=== PATIENT | male | born 1970 | race Caucasian/White ===

== ENCOUNTER 2016-10-03 11:16 | Observation (INO) ==
[2016-10-03] MEDS ORDERED: MIDAZOLAM 5mg/5ml INJECTION IVP ONE (12:06)
[2016-10-03] MEDS ORDERED: FentaNYL 100 MCG/2 ML INJECTION IVP ONE (12:06)
[2016-10-03 12:18] VITALS: BMI 36.5
--- OUTSIDE RECORDS SUMMARY | 2016-10-03 12:26 | External Medical Summary | CCD ---
:1970 Author Name GHAZAL MELCHOR Address [address], [place] [id number] Care Team Providers Name Role Phone KELLIE GEE Attending Physician Unavailable Vital Signs Unknown or Not Available. Allergies Allergy Code Allergy Type Reaction Status No Known Allergies 0 No known allergies Active Procedures Unknown or Not Available. History of Immunizations Unknown or Not Available. Problems Unknown or Not Available. Results INFLUENZA A & B, MOLECULAR - Collect Date/Time: 06/30/2015 13:30 Test Name Code Test Result Test Units Test Ref Range INFLUENZA A NEGATIVE N/A NORMAL: NEGATIVE INFLUENZA B NEGATIVE N/A NORMAL: NEGATIVE Active Medications Unknown or Not Available. Medications Administered During Visit Unknown or Not Available. Encounters Unknown or Not Available. Social History Smoking Status Code Start Date End Date Never smoker [id number] Patient Decision Aids Unknown or Not Available. Discharge Instructions You were admitted to [facility] on 06/30/2015 13:39 You had the following tests done: INFLUENZA A & B, MOLECULAR You were discharged from [facility] on 06/30/2015 13:39 Should you have any questions prior to discharge, please contact a member of your healthcare team. If you have left the hospital and have any questions, please contact your primary care physician. Chief Complaint and Reason For Visit Chief Complaint Date of Onset LAB Function Status Unknown or Not Available. Plan of Care Unknown or Not Available. Referral/Transition of Care Unknown or Not Available.
--- OUTSIDE RECORDS SUMMARY | 2016-10-03 12:26 | External Medical Summary | CCD ---
:1970 Author Name GHAZAL MELCHOR Address [address], [place] [id number] Care Team Providers Name Role Phone WILLIAM TINAJERO Attending Physician Unavailable Vital Signs Unknown or Not Available. Allergies Allergy Code Allergy Type Reaction Status No Known Allergies 0 No known allergies Active Procedures Unknown or Not Available. History of Immunizations Unknown or Not Available. Problems Unknown or Not Available. Results C-REACTIVE PROTEIN - Collect Date/Time: 07/18/2015 16:57 Test Name Code Test Result Test Units Test Ref Range CRP 17 mg/L L=0 H=5 COMP METABOLIC - Collect Date/Time: 07/18/2015 16:57 Test Name Code Test Result Test Units Test Ref Range GLUCOSE 96 mg/dL L=70 H=110 BUN 12 mg/dL L=7 H=18 CREATININE 1.02 mg/dL L=0.60 H=1.30 AGE 45 YEARS GFR 79.3 SODIUM 140 mmol/L L=136 H=145 POTASSIUM 4.0 mmol/L L=3.5 H=5.1 CHLORIDE 102 mmol/L L=98 H=107 CO2 29 mmol/L L=21 H=32 CALCIUM 9.5 mg/dL L=8.5 H=10.1 AST 21 U/L L=15 H=37 ALT 60 U/L L=12 H=78 ALKALINE PHOS 62 U/L L=46 H=116 TOTAL PROTEIN 7.9 g/dL L=6.4 H=8.2 ALBUMIN 3.9 g/dL L=3.4 H=5.0 TOTAL BILI 0.60 mg/dL L=0.00 H=1.00 TSH - Collect Date/Time: 07/18/2015 16:57 Test Name Code Test Result Test Units Test Ref Range TSH 2.04 uIU/mL L=0.36 H=3.74 CBC W/ DIFF - Collect Date/Time: 07/18/2015 16:57 Test Name Code Test Result Test Units Test Ref Range WBC 7.2 x10^3 L=4.8 H=10.8 RBC 4.99 x10^6 L=4.70 H=6.10 HEMOGLOBIN 14.2 g/dL L=14.0 H=18.0 HEMATOCRIT 42.4 % L=42.0 H=52.0 MCV 85 fL L=80 H=100 MCH 28.6 pg L=27.0 H=33.0 MCHC 33.6 g/dL L=33.0 H=37.0 RDW 12.6 % L=11.5 H=14.5 PLATELETS 269 x10^3 L=150 H=450 MPV 7.8 fL L=7.8 H=11.0 NEUTROPHILS 54.5 % L=40.0 H=80.0 LYMPHOCYTES 27.7 % L=20.0 H=45.0 MONOCYTES 14.5 % L=0.0 H=10.0 EOSINOPHILS 2.7 % L=0.0 H=5.0 BASOPHILS 0.6 % L=0.0 H=2.0 REFLEX MAN DIFF NO N/A SED RATE AUTO - Collect Date/Time: 07/18/2015 16:57 Test Name Code Test Result Test Units Test Ref Range SED RATE 13 mm/HR L=0 H=10 LYME DISEASE AB, TOTAL & IgM - Collect Date/Time: 07/18/2015 16:57 Test Name Code Test Result Test Units Test Ref [place] [address]-5 <0.91 ISR 0.00-0.90 Lyme Disease Ab, 5064-1 <0.80 index 0.00-0.79 Quant,IgM Active Medications Unknown or Not Available. Medications Administered During Visit Unknown or Not Available. Encounters Encounter Diagnosis Diagnosis Code Start Date Fever, unspecified R509 07/18/2015 Social History Smoking Status Code Start Date End Date Never smoker [id number] Patient Decision Aids Unknown or Not Available. Discharge Instructions You were admitted to [facility] on 07/18/2015 16:33 with a principal diagnosis of Fever, unspecified You had the following tests done: C- REACTIVE PROTEIN CBC W/ DIFF COMP METABOLIC LYME DISEASE AB, TOTAL & IgM SED RATE AUTO TSH You were discharged from [facility] on 07/18/2015 16:33 Should you have any questions prior to [...]
--- OUTSIDE RECORDS SUMMARY | 2016-10-03 12:26 | External Medical Summary | Continuity of Care Document ---
:1970 Demographics Phone Unavailable Preferred Language Unknown Marital Status Unknown Worship Affiliation Unknown Race Unknown Ethnic Group Unknown Author Organization [facility] Allergies Medications Problems Procedures Results Encounters ACCT No. Visit Discharge Status Pt. Type Provider Facility Loc./Unit Complaint Date/Time [id number] 08/03/2015 [facility] Unknown [id number] 08:35:00 [id number] 07/14/2015 [facility] Unknown 0516 10:26:00
[2016-10-03] MEDS ORDERED: RIVAROXABAN 20 MG TABLET PO SCH (12:36)
--- NOTE | 2016-10-03 13:20 | Cardiology History & Physical ---
History of Present Illness Chief complaint: palpitations HPI: Daren is a 46 year old male who has no history of health problems and takes no medications who awoke this morning with some pressure in his chest. He showered and went to work where he had some intermittent dizziness. He presented to the ED in [place] and was found to be in AFib with RVR. He was taken by EMS to [facility] for admission to Dr. Diaz. He is seen in his room in CCU. He denies recent illness, fever, chills, sore throat, cough, Heart racing or skipped beats, chest pain, dyspnea, N/V/D, or dysuria. Review of Systems - Constitutional Constitutional: Absent: chills, fever(s), weakness - EENMT Eyes: Absent: change in vision Balance: Absent: vertigo Mouth/Throat: Absent: sore throat - Cardiovascular Cardiovascular: Present: as per HPI. Absent: chest pain, palpitations, syncope Rhythm: Absent: abnormal rhythm Vascular: Absent: pedal edema - Respiratory Respiratory: Absent: cough, dyspnea - Gastrointestinal Gastrointestinal: Absent: diarrhea, nausea, vomiting - Genitourinary Genitourinary: Absent: dysuria - Integumentary/Breasts Integumentary: Absent: rash - Neurological Neurological: Present: dizziness - Endocrine Endocrine: Absent: palpitations [facility] Patient Stated Medical History Cardiac Arrhythmia Yes: 10/03/16 a-fib Surgical History: none - Social History Smoking status: Never smoker Substance use type: does not use Alcohol intake frequency: 0-2 drinks per day Household members: spouse Current occupational status: employed Current residence: Apartment/Private Home Medications Allergies Allergy/AdvReac Type Severity Reaction Status Date / Time No Known Allergies Allergy Verified 10/03/16 12:15 Exam Vital signs: Pulse Rate 95 10/03/16 12:39 Respiratory Rate 26 H 10/03/16 12:23 Blood Pressure 127/85 10/03/16 12:23 Pulse Oximetry 97 10/03/16 12:23 Oxygen Delivery Method Room Air - Constitutional no acute distress, obese, cooperative - Routine HEENT Exam Head: Present: normocephalic - Routine Neck Exam Absent: JVD, carotid bruit - Routine Chest/Breast/Axilla Exam Chest wall: Absent: tenderness - Routine Respiratory Exam Present: CTA bilaterally. Absent: rales, wheezes - Routine Cardiovascular Exam Present: no murmur, irregularly irregular. Absent: JVD - Routine Abdominal Exam Present: soft, normoactive bowel sounds - Routine Extremities Exam Present: no edema - Routine Skin Exam Present: intact, dry, warm - Routine Neurological Exam Present: alert, oriented X3 - Routine Psychiatric Exam Present: normal affect, normal thought process Results 10/04/16 05:03 10/04/16 05:03 Intake and Output 10/02/16 10/03/16 10/03/16 22:59 06:59 14:59 Other: Weight 284 lb 6.341 oz Patient Weight 10/04/16 06:59 Weight 284 lb 6.341 oz Laboratory Results - last 48 hr 10/03/16 13:01 Magnesium 2.3 TSH 1.57 - Imaging and Cardiology EKG results: image reviewed Imaging & Cardiology Narrative: Chest xray doen in [place] without acute cardiopulmonary disease 10/03/16 13:19 EKG interpretations - EKG EKG shows: atrial fibrillation Hospital Course This is a general summary of the patient's hospital course. For more details refer to the complete medical record. Assessment and Plan (1) Atrial fibrillation with rapid ventricular response Status: Acute Rate control with IV Cardizem bolus. NPO for DCCV today. Successful DCCV, Started on Flecainide for antiarrhythmic therapy. Continue Xarelto for 1 month - Attestation Attestation Narrative: 10/04/16 14:06 Recommendation After examining the patient I agree with the above assessment. I am involved in the formulation of the patient's plan of care. Sepsis Assessment - Evaluation Sepsis screening result: No Definite Risk
[2016-10-03] MEDS: RIVAROXABAN 20 MG TABLET PO SCH ×2 (15:37→16:31)
[2016-10-03] MEDS: FLECAINIDE 50 MG TABLET PO SCH ×2 (15:37→21:04)
--- NOTE | 2016-10-03 16:24 | DC Cardioversion ---
DATE OF PROCEDURE October 03, 2016 INDICATIONS The patient is a 46-year-old gentleman who developed symptomatic atrial fibrillation this morning and was referred for cardioversion. INFORMED CONSENT Informed consent was obtained after explaining the procedure and the potential risks to the patient who agreed to proceed with the procedure. PROCEDURE 1. DC cardioversion. Conscious sedation was performed using Versed and fentanyl. Anterior-posterior Zoll pads were applied. 360 joules of energy were delivered in synchronized manner and patient converted from atrial fibrillation into sinus rhythm. He tolerated the procedure well with no complications. IMPRESSION 1. Successful DC cardioversion of atrial fibrillation to sinus rhythm. PLAN Will start him on antiarrhythmics to maintain sinus and keep him on anticoagulation for a month since his CHADS-VASc is 0. MTDD
[2016-10-04] MEDS: FLECAINIDE 50 MG TABLET PO SCH (08:35)
[2016-10-04 11:52] VITALS: TEMP 97.8
[2016-10-04 12:51] VITALS: BP 123/83; PULSE 69; RESP 26; O2SAT 96
--- NOTE | 2016-10-04 12:51 | Discharge Summary ---
<Dianne Cortez - Last Filed: 10/04/16 12:48> Discharge Information Date of admission: 10/03/16 12:05 Anticipated date of discharge: 10/04/16 Attending Physician: Jett Diaz MD - Discharge Diagnosis Discharge Diagnosis: Atrial fibrillation - Procedures Procedures: DATE OF PROCEDURE October 03, 2016 INDICATIONS The patient is a 46-year-old gentleman who developed symptomatic atrial fibrillation this morning and was referred for cardioversion. INFORMED CONSENT Informed consent was obtained after explaining the procedure and the potential risks to the patient who agreed to proceed with the procedure. PROCEDURE 1. DC cardioversion. Conscious sedation was performed using Versed and fentanyl. Anterior-posterior Zoll pads were applied. 360 joules of energy were delivered in synchronized manner and patient converted from atrial fibrillation into sinus rhythm. He tolerated the procedure well with no complications. IMPRESSION 1. Successful DC cardioversion of atrial fibrillation to sinus rhythm. PLAN Will start him on antiarrhythmics to maintain sinus and keep him on anticoagulation for a month since his CHADS-VASc is 0. - Laboratory Labs: 10/04/16 05:03 10/04/16 05:03 Laboratory Results - last 72 hr 10/03/16 10/04/16 10/04/16 13:01 05:03 05:03 WBC 8.3 RBC 4.77 Hgb 14.6 Hct 42.7 MCV 89.5 MCH 30.6 MCHC 34.2 RDW Std Deviation 43.1 Plt Count 171 MPV 10.8 Turbidity < 20 Sodium 144 Potassium 4.5 Chloride 107 Carbon Dioxide 27 Anion Gap 10 BUN 13.0 Creatinine 1.0 GFR Calculation 81 BUN/Creatinine Ratio 13 Glucose 106 Calculated Osmolality 277 Calcium 9.1 Magnesium 2.3 Icterus Index < 2 TSH 1.57 Specimen Hemolysis < 15 History of Present Illness HPI: Daren is a 46 year old male who has no history of health problems and takes no medications who awoke this morning with some pressure in his chest. He showered and went to work where he had some intermittent dizziness. He presented to the ED in [place] and was found to be in AFib with RVR. He was taken by EMS to [facility] for admission to Dr. Diaz. He is seen in his room in CCU. He denies recent illness, fever, chills, sore throat, cough, Heart racing or skipped beats, chest pain, dyspnea, N/V/D, or dysuria. Hospital Course This is a general summary of the patient's hospital course. For more details refer to the complete medical record. Time spent with patient: 25 - 35 minutes DVT Prophylaxis: Xarelto Exam Vital signs: Temperature 97.8 F 10/04/16 11:15 Pulse Rate 74 10/04/16 11:59 Respiratory Rate 24 10/04/16 11:15 Blood Pressure 122/70 10/04/16 11:15 Pulse Oximetry 97 10/04/16 11:15 Oxygen Delivery Method Room Air - Constitutional no acute distress, obese, cooperative - Routine HEENT Exam Head: Present: normocephalic ENT: Present: mucous membranes moist - Routine Neck Exam Absent: JVD, carotid bruit - Routine Chest/Breast/Axilla Exam Chest wall: Absent: tenderness - Routine Respiratory Exam Present: CTA bilaterally. Absent: rales, wheezes - Routine Cardiovascular Exam Present: RRR. Absent: no murmur, JVD - Routine Abdominal Exam Present: soft, normoactive bowel sounds - Routine Extremities Exam Present: no edema - Routine Skin Exam Present: intact, dry, warm - Routine Neurological Exam Present: alert, oriented X3 - Routine Psychiatric Exam Present: normal affect, normal thought process Results 10/04/16 05:03 10/04/16 05:03 CBC 10/04/16 Range/Units 05:03 WBC 8.3 (4.5-11.0) T/MM3 RBC 4.77 (4.50-5.90) M/MM3 Hgb 14.6 (13.5-17.5) GM/DL Hct 42.7 (41-53) % Plt Count 171 (130-400) T/MM3 Comprehensive Metabolic Panel 10/04/16 Range/Units 05:03 Sodium 144 (134-144) MEQ/L Potassium 4.5 (3.6-5) MEQ/L Chloride 107 (98-107) MEQ/L Carbon Dioxide 27 (22-30) MEQ/L BUN 13.0 (9-20) MG/DL Creatinine 1.0 (0.8-1.5) MG/DL Glucose 106 (75-110) MG/DL Calcium 9.1 (8.4-10.2) MG/DL Intake and Output 10/03/16 10/04/16 10/04/16 22:59 06:59 14:59 Intake Total 850 / 850 Balance 850 / 850 Intake: Oral 850 / 850 Other: # Voids 3 1 # Bowel Movements 1 Weight 283 lb 15.286 oz Patient Weight 10/05/16 06:59 Weight 283 lb 15.286 oz - Imaging and Cardiology EKG results: image reviewed - EKG Interpretation EKG: sinus rhythm Discharge Plan - Med Rec/Dispo Referrals/Follow Up: Jett Diaz MD [Physician] - 10/18/16 10:20 am [place] Instructions: A-fib (Atrial Fibrillation) (DC) Additional Instructions: Take a Xarelto samples as directed and then start Aspirin 81mg by mouth daily Prescriptions: New Flecainide [Tambocor] 50 mg PO Q12HR #60 tablet Rivaroxaban [Xarelto] 20 mg PO WS tablet - Disposition 01 Discharged Home, Self-Care <Jett Diaz - Last Filed: 10/08/16 13:14> Discharge Information Date of admission: 10/03/16 12:05 Attending Physician: Jett Diaz MD - Laboratory Labs: 10/04/16 05:03 10/04/16 05:03 Hospital Course This is a general summary of the patient's hospital course. For more details refer to the complete medical record. Exam Vital signs: Temperature 97.8 F 10/04/16 11:15 Pulse Rate 69 10/04/16 12:00 Respiratory Rate 26 H 10/04/16 12:00 Blood Pressure 123/83 10/04/16 12:00 Pulse Oximetry 96 10/04/16 12:00 Oxygen Delivery Method Room Air Results 10/04/16 05:03 10/04/16 05:03 Discharge Plan - Med Rec/Dispo - Attestation Attestation Narrative: 10/08/16 13:14 Recommendation After examining the patient I agree with the above assessment. I am involved in the formulation of the patient's plan of care.
--- NOTE | 2016-10-04 13:03 | Work/School Release ---
Work/School Release - Date Date: 10/04/16 - Work Release Excused for:: recent hospitalization May return to work on:: 10/05/16 Restrictions:: No restrictions. May resume normal activity on:: 10/05/16
== END 2016-10-04 13:23 | disposition home or self-care (01) ==
LOC: CCU → SRG 10-04 07:57
PROVIDERS: ADMIT Internal Medicine Cardiovascular Disease; ATTEND Internal Medicine Cardiovascular Disease